=== PATIENT | male | born 1975 | race Caucasian/White ===

== ENCOUNTER → 2025-01-15 | Outpatient (CLI) | payer BC, OTHER ==
--- NOTE | 2025-01-15 12:58 | CT ---
INDICATION: Patient age:Male; 49 years old; Reason for study: [facility] Protocol for left knee replacement, M17.12 OA KNEE, Z01.818, E11.9; LOCATED WITHIN [facility]. COMPARISON: None TECHNIQUE: Thin section axial CT imaging of the entire left lower extremity was performed per [facility] protocol, wit hout the administration of IV contrast. Additional axial images of the bilateral hips and ankles with other knee were also obtained. Reformatted images in coronal and sagittal views obtained. FINDINGS: There is no evidence of acute fracture or dislocation. Mixed sclerotic/lytic lesion with benign morphology involving the left superior acetabulum measuring up to 2.2 cm. Possible enchondroma. Additional sclerotic benign bone within the left proximal femur. Otherwise the bilateral hips are unremarkable. Sigmoid diverticulosis. Fat filled right neural hernia . Tricompartmental joint space narrowing with marginal osteophytosis involving the left knee. There is [id number] contact involving the medial tibiofemoral joint. Consistent with moderate to severe oste oarthritic change. Small suprapatellar joint effusion. The ankle are intact. Bilateral plantar and posterior calcaneal enthesophytes demonstrated. The visualized soft tissues appear grossly unremarkable within the limits of unenhanced CT. IMPRESSION: [facility] protocol for left knee joint replacement. [facility], , 01/15/2025 12:56 PM
[2025-01-15 14:06] LABS: Partial Thromboplastin Time 25.2 sec (22.0-30.0); Prothrombin Time 10.7 sec (10.0-12.5)
[2025-01-15 20:49] LABS: Albumin 4.6 g/dL (3.8-4.9); BUN/Creat Ratio 17.11 Ratio (12.00-20.00); Blood Urea Nitrogen 15.4 mg/dL (9.0-27.0); Calcium 9.6 mg/dL (8.7-10.3); Carbon Dioxide 24.6 mmol/L (21.6-31.8); Chloride 105 mmol/L (96-109); Glucose 100 mg/dL (70-110); Potassium 4.3 mmol/L (3.5-5.5); Sodium 143 mmol/L (135-145); Total Protein 6.8 g/dL (6.2-8.2)
[2025-01-15 20:50] LABS: ALT 55 U/L (10-49); AST 33 U/L (14-35); Albumin/Globulin Ratio 2.09 Ratio (1.60-3.17); Alkaline Phosphatase 89 U/L (41-126); Globulin 2.2 g/dL (1.6-3.3); Total Bilirubin 0.4 mg/dL (0.3-1.2)
[2025-01-15 20:54] LABS: HGB 16.1 g/dL (13.0-17.0); MCH 29.9 pg (27.0-32.0); MCHC 33.5 g/dL (32.0-37.0); MCV 89.2 FL (80.0-97.0); Mean Platelet Volume 11.5 FL (9.5-12.2); NRBC Per 100 WBC 0 X 10*3/uL (0.00-0.01); Platelet Count 231 X 10*3/uL (140-440); RBC 5.38 X 10*6/uL (4.40-5.60); RDW 13.2 % (11.5-14.5)
== END | disposition home or self-care (01) ==
LOC: RADCTMAIN 12:11
PROVIDERS: ATTEND Orthopaedic Surgery
DX: Z01.818 Encounter for other preprocedural examination (principal); M17.12 Unilateral primary osteoarthritis, left knee; E11.9 Type 2 diabetes mellitus without complications; Z96.652 Presence of left artificial knee joint
CPT/HCPCS: 80053; 83036; 85027; 85610; 85730; 87070; 93005